=== PATIENT | male | born 1950 | race Caucasian/White ===

== ENCOUNTER 2020-10-26 20:19 | Emergency (ER) | payer MEDICARE ==
[~2020-10-26] VITALS: Ht 170.2 cm; Wt 89.7 kg
--- NOTE | 2020-10-26 21:49 | NUR ---
PATIENT TAKEN TO XRAY VIA WHEELCHAIR, TOLERATED WELL.
--- NOTE | 2020-10-26 21:54 | NUR ---
PT RETURNED FROM XRAY. TOLERATED WELL.
[2020-10-26 22:53] VITALS: BP 136/68
== END 2020-10-26 22:54 | disposition home or self-care (01) ==
LOC: ED 21:47
DX: R07.89 Other chest pain (principal); J44.9 Chronic obstructive pulmonary disease, unspecified
CPT/HCPCS: 99283